=== PATIENT | male | born 1980 | race Caucasian/White ===

== ENCOUNTER 2022-12-28 19:07 | Emergency (ER) | payer MEDICAID ==
[~2022-12-28] VITALS: Ht 170.2 cm; Wt 89.8 kg
--- NOTE | 2022-12-28 19:23 | NUR ---
PT IN BED A/O X4 BREATHING IS UNLABORED. COMPLAINING OF HEAD ACHE. PT CONNECTED TO BEDSIDE MONITOR.
[2022-12-28] MEDS ORDERED: KETOROLAC TROMETHAMINE INJ 30 MG/ML VIAL ONE (19:45)
[2022-12-28] MEDS ORDERED: CLONIDINE HCL 0.1 MG TABLET ONE (19:45)
[2022-12-28] MEDS ORDERED: CYCLOBENZAPRINE 10 MG TABLET ONE (19:45)
[2022-12-28] MEDS ORDERED: CYCLOBENZAPRINE 10 MG TABLET PO ONE (20:00)
[2022-12-28] MEDS ORDERED: KETOROLAC TROMETHAMINE INJ 30 MG/ML VIAL IM ONE (20:00)
[2022-12-28] MEDS ORDERED: CLONIDINE HCL 0.1 MG TABLET PO ONE (20:00)
[2022-12-28] MEDS ORDERED: AMLO-212 PO (21:11)
[2022-12-28] MEDS ORDERED: CYCL5TAB PO (21:11)
[2022-12-28] MEDS ORDERED: KETO10TA2 PO (21:11)
[2022-12-28 21:32] VITALS: BP 137/95
--- NOTE | 2022-12-28 21:32 | NUR ---
Patient discharged to home in stable condition. RX Written and verbal after care instructions given. Patient verbalizes understanding of instruction. PT ambulatory with a steady gait
== END 2022-12-28 21:32 | disposition home or self-care (01) ==
LOC: ER 19:10
DX: S16.1XXA Strain of muscle, fascia and tendon at neck level, initial encounter (principal); I10 Essential (primary) hypertension; Z79.899 Other long term (current) drug therapy; X58.XXXA Exposure to other specified factors, initial encounter; Y93.89 Activity, other specified; Y92.89 Other specified places as the place of occurrence of the external cause; Y99.8 Other external cause status
CPT/HCPCS: 99285; 96372; J1885